=== PATIENT | male | born 1965 | race Caucasian/White ===

== ENCOUNTER 2019-04-15 15:07 | Emergency (ER) | payer OTHER, SELFPAY ==
--- NOTE | ~2019-04-15 | XR_ITS ---
EXAMINATION: XR hand LT 2V EXAM DATE: 04/15/2019 15:33 INDICATION: Initial encounter following injury, with pain of the left hand. TECHNIQUE: Left hand frontal, lateral projections obtained and reviewed. There is no prior study for comparison. FINDINGS: Left metacarpal bones are unremarkable. There is deep left fourth distal phalangeal lacerat ion. Acute comminuted open post traumatic fractures through the left fourth distal phalangeal shaft a nd tuft with displacement of comminuted fragments. There is probable third distal phalangeal soft tissue laceration. Possible third tuft acute nondispla ari fracture. No radiopaque foreign bodies identified. IMPRESSION: 1. Left fourth distal phalangeal comminuted open fracture. 2. Third distal phalangeal laceration, possible nondisplaced tuft fracture. Reviewed, dictated and finalized at location B. FIC REPRESENTATIVE
[2019-04-15 15:28] VITALS: BP 115/74; PULSE 63; RESP 16; TEMP 36.8; O2SAT 100
[2019-04-15] MEDS: MORPHINE SULFATE 4 MG/ML INJ IV PUSH (15:53)
--- NOTE | 2019-04-15 15:57 | ED_ITS ---
HPI - Extremity Injury (Upper) General Chief Complaint: Extremity Injury, Upper Stated Complaint: cut finger Source: patient Mode of arrival: ambulatory Limitations: no limitations History of Present Illness HPI narrative: This is a 54-year-old male that presents after he cut his fingers, mainly the left 4th distal finger a through and through fracture of his distal 4th phalanges, with the exposed bone of that occurred earlier today after using a mider saw, with thumb injury also on laceration to the distal surface of his left 3rd finger. complaint: injury to: left Other Extremity Injury: Left: fingers (4th finger LAC through the Distal phalageal) Other injuries: none Handedness: right Place: home Severity: severe Severity scale (1-10): 8 Relieving factors: none Exacerbating factors: movement of extremity Context: other (Ocurred with a Mider saw) Associated symptoms: numbness Related Data Home Medications Medication Instructions Recorded Confirmed No Home Medications 04/15/19 04/15/19 Allergies Allergy/AdvReac Type Severity Reaction Status Date / Time No Known Allergies Allergy Unverified 12/08/17 13:41 Review of Systems Review of Systems: All systems reviewed & are unremarkable except as noted in HPI and below PMFSH Past Medical History Medical History Patient denies medical problems Exam Const: General: no acute distress and alert Nutritional Appearance: well nourished Orientation/consciousness: patient oriented x3 HENMT: Head: normal to inspection Eyes: Conjunctivae: conjunctivae normal Pupils: Equal, round and reactive pupils present Neck: Neck: normal visual inspection Resp: Effort & Inspection: normal respiratory effort Auscultation: clear to auscultation bilaterally Cardio: Rate: regular rate Rhythm: regular rhythm GI: GI Palp: Yes Soft to palpation Neuro: General: patient oriented x3 and no meningeal signs Extrem: Other: 4th finger distal phalangeal comminuted open fracture Course Vital Signs Vital signs: Vital Signs Temperature 36.8 C 04/15/19 15:28 Pulse Rate 63 04/15/19 15:28 Respiratory Rate 16 04/15/19 15:28 Blood Pressure 115/74 04/15/19 15:28 Pulse Oximetry 100 04/15/19 15:28 Temperature 36.8 C 04/15/19 15:28 Pulse Rate 63 04/15/19 15:28 Respiratory Rate 16 04/15/19 15:28 Blood Pressure 115/74 04/15/19 15:28 Pulse Oximetry 100 04/15/19 15:28 Transfer Transfer rationale: Highr level of care Accepting physician: Dr. Glaser at [facility] , patient preference Critical Care Time Critical Care Time Critical Care Time: No Discharge Plan Discharge Clinical Impression: Comminuted fracture of bone Patient Disposition: Acute Care Hospital Condition: Stable Prescriptions: No Action No Home Medications RF: 0 Follow-up/Referrals: UNKNOWN,DOCTOR [Primary Care Provider] - Time of Disposition: 16:39
--- NOTE | 2019-04-15 15:59 | PC.NURSE ---
RN CONTACTED [facility] NICHOLE BERMAN, AT THIS TIME FOR TRANSFER. FACESHEET FAXED TO [facility]. RADIOLOGY IMAGES PUSHED UP TO [facility].
[2019-04-15] MEDS: ceFAZolin 2 GM/D5W 50 ML 2 GM/50 ML BAG IVPB (16:04)
[2019-04-15 17:21] VITALS: BP 118/76; PULSE 62; RESP 16; O2SAT 99
== END 2019-04-15 17:30 | disposition short-term general hospital (02) ==
PROVIDERS: Emergency Provider Emergency Medicine
DX: S62.605B Fracture of unspecified phalanx of left ring finger, initial encounter for open fracture (principal); W29.8XXA Contact with other powered hand tools and household machinery, initial encounter
CPT/HCPCS: 73120; 96365; 96375; 99284; J0690; J2270

== ENCOUNTER → 2020-04-22 00:51 | Outpatient (CLI) | payer BC, SELFPAY ==
[2020-04-22 19:47] LABS: SARS-CoV-2 RNA PCR Negative
== END ==
PROVIDERS: PCP Family Medicine; Visit Provider Internal Medicine Gastroenterology
DX: Z01.812 Encounter for preprocedural laboratory examination (principal); Z20.822 Contact with and (suspected) exposure to COVID-19
CPT/HCPCS: C9803; U0003; U0005

== ENCOUNTER 2020-04-26 01:46 | Day surgery (SDC) | payer BC, SELFPAY ==
[2020-04-17 11:31] VITALS: BMI 26.8
[2020-04-26 07:50] VITALS: BP 117/75; PULSE 75; RESP 18; TEMP 36.3; O2SAT 100; BMI 23.3
[2020-04-26] MEDS: LACTATED RINGERS 1,000 ML 150 ML IV CONT (08:07)
--- NOTE | 2020-04-26 08:35 | WPDANESEPPF ---
Anes - Initial Pre Proc Eval Procedure: Operation Date: 04/26/20 09:00 Proposed Procedures p Screening Colonoscopy - Nazario Mcnamara MD Date/Time: 04/26/20 08:35 Surgeon: Nazario Mcnamara MD Pre Op Diagnosis: neoplasm screening Patient Data Age: 55 Gender: M Height: 5 ft 8 in Weight: 69.6 kg Last Vital Signs Temp 97.4 F L 04/26/20 07:50 Pulse 75 04/26/20 07:50 Resp 18 04/26/20 07:50 BP 117/75 04/26/20 07:50 Pulse Ox 100 04/26/20 07:50 Allergies Allergy/AdvReac Type Severity Reaction Status Date / Time No Known Allergies Allergy Verified 04/26/20 07:49 Home Medications Medication Instructions Recorded Confirmed Type No Home Medications 04/26/20 04/26/20 History Patient hx anesthesia problems: none Family hx anesthesia problems: none PMFSH Past Medical History Medical History (Updated 04/26/20 @ 08:35 by Ruy Longo MD) Allergies Colon cancer screening Encounter for prostate cancer screening Encounter for wellness examination in adult History of PSVT (paroxysmal supraventricular tachycardia) had an ablation and no problems since Migraines Ophthalmic migraine Patient denies medical problems Seasonal allergic rhinitis Surgical History Surgical History (Updated 05/17/19 @ 13:08 by Annie Ruiz MA) H/O prior ablation treatment (~2018) Family History Family History (Updated 05/17/19 @ 13:11 by Annie Ruiz MA) Mother Hypertension Arrhythmia Father Arrhythmia Grandparent Lymphoma Grandparent Lung cancer Grandparent Dementia Grandparent Acute myocardial infarction Hypertension Sibling Breast cancer Social History Social History Smoking status: Never smoker Alcohol intake: never Substance use: never Substance use type: does not use Living arrangements: with family Spiritual care concerns: No Anes - Eval Final PreProcedure Day of Procedure 04/26/20 08:35 Patient weight: normal Heart: regular rate and rhythm Lungs: clear to auscultation Airway: Mallampati scale class II Neurological: alert and oriented Last oral intake: >/= 8 hours ASA classification: II Emergent: no Anesthetic plan: proceed Anesthesia type and monitoring: general GIVS and standard monitoring Informed Consent: The patient's anesthetic plan and its attendant risks and benefits were discussed with the patient/family/POA. Questions were solicited and answers provided to the satisfaction of the patient/family/POA.
[2020-04-26] MEDS: SIMETHICONE ORAL SUSPENSION 20 MG/0.3 ML 30 ML BOTTLE 0.6 ML IRRIGATION (09:06)
[2020-04-26 09:15] VITALS: BP 100/64; PULSE 69; RESP 15; O2SAT 96
[2020-04-26 09:25] VITALS: BP 102/68; PULSE 58; RESP 19; O2SAT 98
[2020-04-26 09:35] VITALS: BP 117/70; PULSE 56; RESP 22; O2SAT 98
--- NOTE | 2020-04-27 15:14 | PM.HPGS ---
History of Present Illness History of Present Illness Consent: Risks, benefits, and alternatives have been discussed and questions answered. Patient agrees to proceed with procedure. Chief complaint: neoplasm screening Narrative: [place] is a 55 year old male here for colon cancer screening. Review of Systems Review of Systems: All systems reviewed & are unremarkable except as noted in HPI and below PMFSH Past Medical History Medical History Allergies Colon cancer screening Encounter for prostate cancer screening Encounter for wellness examination in adult History of PSVT (paroxysmal supraventricular tachycardia) had an ablation and no problems since Migraines Ophthalmic migraine Patient denies medical problems Seasonal allergic rhinitis Surgical History Surgical History (Updated 05/17/19 @ 13:08 by Annie Ruiz MA) H/O prior ablation treatment (~2019) Family History Family History Mother Hypertension Arrhythmia Father Arrhythmia Grandparent Lymphoma Grandparent Lung cancer Grandparent Dementia Grandparent Acute myocardial infarction Hypertension Sibling Breast cancer Social History Social History Smoking status: Never smoker Alcohol intake: never Substance use: never Substance use type: does not use Living arrangements: with family Spiritual care concerns: No Meds Home Medications and Allergies Home Medications Medication Instructions Recorded Confirmed Type No Home Medications 04/26/20 04/26/20 History Allergies Allergy/AdvReac Type Severity Reaction Status Date / Time No Known Allergies Allergy Verified 04/26/20 07:49 Exam Resp: Auscultation: clear to auscultation bilaterally Cardio: Rate: regular rate Rhythm: regular rhythm GI: GI Palp: Yes Soft to palpation and No Tenderness to palpation present (GI) Assessment and Plan Assessment and plan (1) Colon cancer screening: Code(s): Z12.11 - Encounter for screening for malignant neoplasm of colon Status: Acute Assessment and Plan: Colonoscopy with possible biopsy or polypectomy or cautery or injection of substances.
== END 2020-04-26 10:05 | disposition home or self-care (01) ==
PROVIDERS: PCP Family Medicine; Visit Provider Internal Medicine Gastroenterology
PROC: 0DJD8ZZ Inspection of Lower Intestinal Tract, Via Natural or Artificial Opening Endoscopic (ICD-10-PCS; CPT 45378; principal; 2020-04-26 09:00)
DX: Z12.11 Encounter for screening for malignant neoplasm of colon (principal); K64.8 Other hemorrhoids
CPT/HCPCS: 45378; J7120

== ENCOUNTER 2022-03-03 19:14 | Emergency (ER) | payer BC, SELFPAY ==
[2022-03-03] VITALS (15 sets, daily range): BP systolic 113–152; BP diastolic 73–97; PULSE 67–77; RESP 11–20; TEMP 36.1–36.6; O2SAT 99–100
--- NOTE | ~2022-03-03 | XR_ITS ---
EXAMINATION: XR chest 1V portable DATE: 03/03/2022 19:52 INDICATION: Right-sided chest pain TECHNIQUE: frontal view of the chest was obtained. COMPARISON: Chest radiograph dated 09/29/2017 FINDINGS: The lungs remain clear with no focal airspace opacities, pulmonary edema, pleural effusion or pneumot horax. The cardiomediastinal silhouette is normal. Visualized bones and soft tissues are unremarkable . IMPRESSION: 1. Normal chest radiograph. Reviewed, dictated and finalized at location A. ASSISTANT IMPRESSION: 1. Normal chest radiograph.
--- NOTE | 2022-03-03 19:21 | ECG_ITS ---
Measurements Intervals [place] Rate: 70 P: 78 [place]: 165 QRS: 82 QRSD: 86 T: 75 QT: 377 QTc: 407 Interpretive Statements SINUS RHYTHM POSSIBLE LEFT ATRIAL ENLARGEMENT INCOMPLETE RIGHT BUNDLE BRANCH BLOCK BORDERLINE T WAVE ABNORMALITY- ANTERIOR LEADS BASELINE ARTIFACT- I, III, AVL, V1-V4, V6 BORDERLINE ECG NO PREVIOUS ECG AVAILABLE FOR COMPARISON Electronically Signed On 03-04-2022 8:03:58 [employer] by Randolph Odell D.O.
--- NOTE | 2022-03-03 19:33 | ED.CHESTPAIN ---
HPI - Chest Pain General Chief Complaint: Chest Pain Stated Complaint: chest pain Time Seen by Provider: 03/03/22 19:33 Source: patient and family Mode of arrival: ambulatory Limitations: no limitations History of Present Illness HPI narrative: Patient is a 57-year-old white male while at home watching TV after dinner At 6:55 p.m. had sudden right parasternal chest pain lasting for about 15 seconds associated with diaphoresis and chills without any nausea or vomiting. He described the pain as a pressure achy pain 5/10 in severity. Now he feels back to normal. He said he got up and went to the bathroom was a little unsteady on his feet on the way to the bathroom. He also has had some associated tingling in his hands for about 10 seconds. He denies fever diarrhea shortness of breath dyspnea on exertion myalgias or joint pain. Nothing seemed to make it worse or better. Pain was nonradiating. Related Data Home Medications Medication Instructions Recorded Confirmed No Home Medications 03/03/22 03/03/22 Allergies Allergy/AdvReac Type Severity Reaction Status Date / Time Sulfa (Sulfonamide Allergy Severe Rash Verified 03/03/22 19:29 Antibiotics) Review of Systems Constitutional: Constitutional: Reports as per HPI, Reports no additional constitutional complaints, Reports chills, Denies fatigue, Denies fever(s) and Denies weakness Comments: patient was previously well. Eyes: Eyes: Reports no additional eye complaints ENT: Reports system reviewed and no additional complaints, except as documented Cardiovascular: Cardiovascular: Reports as per HPI and Reports no additional cardiovascular complaints Respiratory: Respiratory: Reports as per HPI and Reports no additional respiratory complaints Gastrointestinal: Gastrointestinal: Reports as per HPI and Reports no additional gastrointestinal complaints Genitourinary: Genitourinary: Reports no additional male genitourinary complaints Musculoskeletal: Musculoskeletal: Reports no additional musculoskeletal complaints Integumentary/Breasts: Skin/Breast: Denies rash Neurologic: Reports system reviewed and no additional complaints, except as documented, Reports as per HPI, Denies focal weakness, Denies numbness and Denies weakness Comments: denies vertigo Psychiatric: Psychiatric: Denies anxiety Endocrine: Endocrine: Denies fatigue Allergic/Immunologic: Allergic/Immunologic: Denies throat swelling and Denies wheezing PMFSH Past Medical History Medical History Abnormal urine color Allergies BMI 20.0-20.9, adult Chronic low back pain without sciatica Colon cancer screening Normal colonoscopy with Dr. Mcnamara on 04/26/2020 Dysuria Encounter for prostate cancer screening Encounter for wellness examination in adult History of PSVT (paroxysmal supraventricular tachycardia) had an ablation and no problems since Migraine with aura and without status migrainosus migraine with visual aura about once every 3 months Ophthalmic migraine Patient denies medical problems Seasonal allergic rhinitis Surgical History Surgical History H/O prior ablation treatment (~2019) Family History Family History Mother Hypertension Arrhythmia Father Arrhythmia Grandparent Lymphoma Grandparent Lung cancer Grandparent Dementia Grandparent Acute myocardial infarction Hypertension Sibling Breast cancer Social History Social History Smoking status: Never smoker Alcohol intake: never Substance use: never Substance use type: does not use Spiritual care concerns: No Exam Narrative: Patient is a white male appears in no apparent distress head is normocephalic atraumatic eyes conjunc
[2022-03-03 20:18] LABS: Hematocrit 41.5 % (40.0-54.0); Hemoglobin 14.3 g/dL (14.0-18.0); Mean Corpuscular HGB Conc 34.5 g/dL (32.0-36.0); Mean Corpuscular Volume 89.8 fL (78.0-102.0); Platelet Count Result 163 K/mm3 (150-420); Red Blood Count 4.62 M/mm3 (4.70-6.10); Red Cell Distribution Width 11.7 % (11.6-14.4); White Blood Count 3.7 K/mm3 (4.8-10.8)
[2022-03-03 20:32] LABS: Partial Thromboplastin Time 24.6 SEC (23.90-30.70); Prothrombin Time 11.2 Seconds (9.50-12.10)
[2022-03-03 20:48] LABS: Alanine Aminotransferase 21 U/L (16-63); Albumin Level 3.7 g/dL (3.4-5.0); Alkaline Phosphatase 63 U/L (46-116); Anion Gap 9 mmol/L (8-16); Aspartate Amino Transferase 17 U/L (15-37); Bilirubin,Total 0.3 mg/dL (0.00-1.00); Blood Urea Nitrogen 20 mg/dL (7-18); Carbon Dioxide 29 mmol/L (21-32); Chloride 100 mmol/L (98-108); Estimated CRCL calculation 78 ml/min; Estimated Glomerular Filt Rate > 60; Glucose 112 mg/dL (70-99); Magnesium 2.1 mg/dL (1.8-2.4); Osmolality Calculated 289 mOsm/kg (285-295); Potassium 3.7 mmol/L (3.5-5.1); Sodium 138 mmol/L (136-145); Total Protein 6.6 g/dL (6.4-8.2); Troponin I 41.1 ng/L (0.00-60.4)
[2022-03-03 20:56] LABS: Influenza A QL RT-PCR Negative (Negative); Influenza B QL RT-PCR Negative (Negative); SARS-CoV-2 RNA PCR Negative (Negative)
[2022-03-03 20:58] LABS: RSV RNA, RT-PCR Negative (Negative)
--- NOTE | 2022-03-03 21:00 | PC.NURSE ---
Pt resting and watching TV, no c/o at this time. VSS, monitor continues to show NSR.
[2022-03-03 21:01] LABS: Lactic Acid Reflex 1.9 mmol/L (0.4-2.0)
--- NOTE | 2022-03-03 21:18 | PC.NURSE ---
Pt given water to drink, watching TV, remains pain free. Pt and informed on POC to draw another 2hr. troponin level. No c/o, VSS, will continue to monitor.
[2022-03-03 22:43] LABS: Troponin I 45.8 ng/L (0.00-60.4)
== END 2022-03-03 23:13 | disposition home or self-care (01) ==
PROVIDERS: Emergency Provider Emergency Medicine; PCP Family Medicine
DX: R07.89 Other chest pain (principal); Z20.822 Contact with and (suspected) exposure to COVID-19
CPT/HCPCS: 36415; 71045; 80053; 83605; 83735; 84484; 85027; 85380; 85610; 85730; 87637; 93005; 99284

== ENCOUNTER → 2023-07-10 09:01 | Outpatient (CLI) | payer OTHER, SELFPAY ==
--- NOTE | ~2023-07-10 | XR_ITS ---
XR shoulder RT min 2V DATE: 07/10/2023 09:12 INDICATION: Right shoulder pain TECHNIQUE: 4 views COMPARISON: None FINDINGS: No fracture or dislocation, periosteal reaction or bone destruction or abnormal soft tissue calcification. IMPRESSION: Negative Reviewed, dictated and finalized at location B. IMPRESSION: Negative
== END ==
LOC: EXPTRAD 09:02
PROVIDERS: PCP Family Medicine; Visit Provider Family Medicine
DX: M25.511 Pain in right shoulder (principal)
CPT/HCPCS: 73030